=== PATIENT | male | born 1990 | race Caucasian/White ===

== ENCOUNTER 2019-06-04 10:45 | Emergency (ER) | payer OTHER, SELFPAY ==
[2019-06-04 10:54] VITALS: BP 127/66; PULSE 116; RESP 16; TEMP 38.8; O2SAT 97
--- NOTE | 2019-06-04 11:41 | ED.URI ---
HPI - URI/Sore Throat General Chief Complaint: Upper Respiratory Infection Stated Complaint: Bodly Aches,Fever Time Seen by Provider: 06/04/19 11:41 Source: patient and family Mode of arrival: ambulatory Limitations: no limitations History of Present Illness HPI Narrative: Erick Miranda is a 29 yo male with no PMH who comes to urgent care with fever, muscle aches, fatigue, and cough, rhinorrha- started and Thursday. Did not get flu vaccine Related Data Allergies Allergy/AdvReac Type Severity Reaction Status Date / Time shellfish derived Allergy Unknown Swelling Verified 03/24/19 18:25 of Lip/Tongue/Throat Shrimp Allergy Intermediate Swelling Uncoded 03/24/19 18:25 of Lip/Tongue/Throat Review of Systems Review of Systems: Narrative: cONSTITUTIONAL: has fever, chills, sweats. EYES: Denies visual changes, redness, discharge. ENT: Denies rhinorrhea, congestion, sore throat, otalgia. CARDIOVASCULAR: Denies chest pain, palpitations, edema. RESPIRATORY: Denies dyspnea, wheezing, has cough GASTROINTESTINAL: Denies abdominal pain, nausea, vomiting, diarrhea. GENITOURINARY: Denies dysuria, hematuria, abnormal discharge SKIN: Denies rash or itching. MUSCULOSKELETAL: Denies acute back pain, joint pain, or has myalgia. NEUROLOGIC: Denies numbness, or focal weakness. PSYCHIATRIC: Denies anxiety or depression. [facility] Past Medical History Medical History Dislocation of left shoulder joint Knee fracture, right Right knee dislocation Surgical History Surgical History No history of previous surgery Family History Family History Mother Family history of thyroid disease Grandparent Family history of type 2 diabetes mellitus Social History Social History Additional smoking assessment comments: Hx of smoking for 14 years, now only vapes occasionally with 3 mg Nicotine Alcohol intake: never Substance use: never Gender identity (if verbalized by the patient): Male Comments At time of signature, I agree with nursing past medical, surgical, social and family history. There is no relevant family history pertinent to the presenting complaint. Exam Narrative: Exam Narrative: GENERAL: This is a well-nourished, well-developed patient, in moderate distress with fever HEAD: normocephalic, atraumatic. EYES: PERRL. Sclera clear/white. Vision is grossly intact. EARS: External ears normal, auditory canals clear and without drainage, TMs normal without perforation. Hearing grossly intact. NOSE: External nose normal with no obvious nasal discharge, nares without redness, no rhinorrhea. THROAT: Mucous membranes moist, posterior pharynx erythema NECK: Neck supple, non-tender CARDIOVASCULAR: Tachycardic rate and rhythm without murmurs, gallops, or rubs. RESPIRATORY: Clear to auscultation. Breath sounds equal bilaterally. No wheezes, rales, or rhonchi. GASTROINTESTINAL: Abdomen soft, non-tender, SKIN: warm, intact with no suspicious lesions or rash, good texture and turgor. NEURO: awake, alert, and oriented to person, place and time. There were no obvious focal neurologic abnormalities. Steady gait EXTREMITIES: Normal range of motion. No edema. BACK: Nontender without deformity or crepitance. . Course Course Emergency Course: Influenza B positive-temiflu for both pt and spouse Vital Signs Vital signs: Vital Signs Temperature 101.8 F H 06/04/19 10:54 Pulse Rate 116 H 06/04/19 10:54 Respiratory Rate 16 06/04/19 10:54 Blood Pressure 127/66 06/04/19 10:54 Pulse Oximetry 97 06/04/19 10:54 Temperature 101.8 F H 06/04/19 10:54 Pulse Rate 116 H 06/04/19 10:54 Respiratory Rate 16 06/04/19 10:54 Blood Pressure 127/66 06/04/19 10:54 Pulse Oximetry 97 06/04/19 10:54
== END 2019-06-04 12:03 | disposition home or self-care (01) ==
PROVIDERS: Emergency Provider Nurse Practitioner
DX: J10.1 Influenza due to other identified influenza virus with other respiratory manifestations (principal); F17.200 Nicotine dependence, unspecified, uncomplicated
CPT/HCPCS: 87804; 99213; G0463

== ENCOUNTER 2020-12-26 10:57 | Emergency (ER) | payer OTHER, SELFPAY ==
[2020-12-26 11:05] VITALS: BP 138/98; PULSE 107; RESP 16; TEMP 36.9; O2SAT 98
[2020-12-26 11:27] VITALS: BP 138/98; PULSE 96; RESP 18; TEMP 36.8; O2SAT 99
--- NOTE | 2020-12-26 11:48 | ED.URI ---
HPI - URI/Sore Throat General Chief Complaint: Upper Respiratory Infection Stated Complaint: Sorethroat Time Seen by Provider: 12/26/20 11:27 Source: patient Mode of arrival: ambulatory Limitations: no limitations History of Present Illness HPI Narrative: Patient is a 30-year-old male complaining of sore throat, pus pockets in the back of his throat, body aches and chills x2 days. Patient denies any chest pain, shortness of breath, abdominal pain, nausea, vomiting, diarrhea, or rash. Related Data Allergies Allergy/AdvReac Type Severity Reaction Status Date / Time shellfish derived Allergy Unknown Swelling Verified 12/26/20 11:35 of Lip/Tongue/Throat Shrimp Allergy Intermediate Swelling Uncoded 12/26/20 11:35 of Lip/Tongue/Throat Review of Systems Review of Systems: All systems reviewed & are unremarkable except as noted in HPI and below Constitutional: Constitutional: Denies excessive sweating, Denies fever(s), Denies headache(s), Denies lethargy, Denies malaise, Denies weakness and Denies weight loss Eyes: Eyes: Denies blurry vision, Denies change in vision and Denies loss of vision ENT: Denies dizziness, Denies ear discharge, Denies headache(s), Denies lip swelling, Denies epistaxis, Denies nasal congestion, Denies neck pain and Denies tongue swelling Cardiovascular: Cardiovascular: Denies chest pain, Denies chest pain at rest, Denies chest pain with activity, Denies diaphoresis, Denies rapid heart rate, Denies edema, Denies irregular heart rhythm, Denies lightheadedness, Denies palpitations, Denies dyspnea and Denies dyspnea on exertion Respiratory: Respiratory: Denies chest congestion, Denies cough, Denies hemoptysis, Denies dyspnea and Denies dyspnea on exertion Gastrointestinal: Gastrointestinal: Denies abdominal pain, Denies melena, Denies hematochezia, Denies diarrhea, Denies nausea, Denies vomiting and Denies hematemesis Musculoskeletal: Musculoskeletal: Denies abnormal gait, Denies deformity, Denies joint swelling, Denies limited range of motion, Denies neck pain and Denies numbness Neurologic: Denies Abnormal speech present, Denies abnormal gait, Denies confusion, Denies dizziness, Denies headache(s), Denies focal weakness, Denies loss of vision, Denies numbness, Denies Other visual disturbances, Denies Sensory deficit (Neuro) and Denies weakness Psychiatric: Psychiatric: Denies confusion, Denies depression, Denies auditory hallucinations, Denies homicidal ideation and Denies suicidal ideation Endocrine: Endocrine: Denies cold intolerance, Denies excessive sweating, Denies fatigue, Denies heat intolerance and Denies palpitations Hematologic/Lymphatic: Hematologic/Lymphatic: Denies easy bleeding and Denies easy bruising Allergic/Immunologic: Allergic/Immunologic: Denies lip swelling, Denies throat swelling and Denies tongue swelling PMFSH Past Medical History Medical History (Updated 12/26/20 @ 13:07 by René Dow MD) Dislocation of left shoulder joint Knee fracture, right Right knee dislocation Surgical History Surgical History No history of previous surgery Family History Family History Mother Family history of thyroid disease Grandparent Family history of type 2 diabetes mellitus Social History Social History Additional smoking assessment comments: Hx of smoking for 14 years, now only vapes occasionally with 3 mg Nicotine Alcohol intake: never Substance use: never Gender identity (if verbalized by the patient): Male Exam Const: General: no acute distress and alert Orientation/consciousness: patient oriented x3 HENMT: Ears: external ears normal General nose exam: no nasal discharge noted Face and sinus: normal facial exam Mouth: Yes lip normal Other: Erythematous, swollen, with exudates of the
[2020-12-26] MEDS: PENICILLIN G BENZATHINE 1,200,000 UNITS/2 ML SYRINGE 1200000 UNITS IM (13:36)
== END 2020-12-26 13:46 | disposition home or self-care (01) ==
PROVIDERS: Emergency Provider Emergency Medicine
DX: J02.0 Streptococcal pharyngitis (principal)
CPT/HCPCS: 87880; 96372; 99284; J0561; J1100

== ENCOUNTER 2021-02-13 05:27 | Emergency (ER) | payer OTHER, SELFPAY ==
[2021-02-13 05:32] VITALS: BP 155/93; PULSE 103; RESP 14; TEMP 36.7; O2SAT 100
--- NOTE | 2021-02-13 06:43 | ED.EAR ---
HPI - Ear Problem General Chief complaint: Ear Stated complaint: ear ache Time Seen by Provider: 02/13/21 05:40 Source: patient Mode of arrival: ambulatory Limitations: no limitations History of Present Illness HPI Narrative: Patient is a 30-year-old male complaining of left ear pain that started yesterday. Patient denies any injury to the area. Patient denies any discharge. Patient denies any facial swelling. Patient denies any fever or chills. Related Data Allergies Allergy/AdvReac Type Severity Reaction Status Date / Time shellfish derived Allergy Unknown Swelling Verified 02/13/21 06:30 of Lip/Tongue/Throat Shrimp Allergy Intermediate Swelling Uncoded 02/13/21 06:30 of Lip/Tongue/Throat Review of Systems Review of Systems: All systems reviewed & are unremarkable except as noted in HPI and below Constitutional: Constitutional: Reports as per HPI PMFSH Past Medical History Medical History (Updated 02/13/21 @ 06:46 by René Dow MD) Dislocation of left shoulder joint Knee fracture, right Right knee dislocation Surgical History Surgical History No history of previous surgery Family History Family History Mother Family history of thyroid disease Grandparent Family history of type 2 diabetes mellitus Social History Social History Additional smoking assessment comments: Hx of smoking for 14 years, now only vapes occasionally with 3 mg Nicotine Alcohol intake: never Substance use: never Gender identity (if verbalized by the patient): Male Exam Const: General: healthy appearing, no acute distress and alert Orientation/consciousness: patient oriented x3 HENMT: Head: normal to inspection Ears: TM's normal bilaterally General nose exam: Normal external nose present Mouth: Yes moist mucous membranes Other: Negative for any ear discharge. Erythematous slightly swollen left external ear canal, tympanic membrane intact Eyes: Conjunctivae: conjunctivae normal Neck: Neck: normal visual inspection Resp: Effort & Inspection: normal respiratory effort Skin: General skin exam: normal color Rashes: no rashes Course Vital Signs Vital signs: Vital Signs Temperature 36.7 C 02/13/21 05:32 Pulse Rate 103 H 02/13/21 05:32 Respiratory Rate 14 02/13/21 05:32 Blood Pressure 155/93 H 02/13/21 05:32 Pulse Oximetry 100 02/13/21 05:32 Temperature 36.7 C 02/13/21 05:32 Pulse Rate 103 H 02/13/21 05:32 Respiratory Rate 14 02/13/21 05:32 Blood Pressure 155/93 H 02/13/21 05:32 Pulse Oximetry 100 02/13/21 05:32 Medical Decision Making Vital Signs Vital Signs: Vital Signs Temperature 36.7 C 02/13/21 05:32 Pulse Rate 103 H 02/13/21 05:32 Respiratory Rate 14 02/13/21 05:32 Blood Pressure 155/93 H 02/13/21 05:32 Pulse Oximetry 100 02/13/21 05:32 Temperature 36.7 C 02/13/21 05:32 Pulse Rate 103 H 02/13/21 05:32 Respiratory Rate 14 02/13/21 05:32 Blood Pressure 155/93 H 02/13/21 05:32 Pulse Oximetry 100 02/13/21 05:32 Discharge Plan Discharge Clinical Impression: Otitis externa Qualifiers: Otitis externa type: other infective Chronicity: acute Laterality: left Qualified Code(s): H60.392 - Other infective otitis externa, left ear Patient Disposition: Home, Self-Care Condition: Stable Instructions: Antibiotic Form, Swimmer's Ear (ED) Prescriptions: New Cipro HC 0.2-1 % drops,suspension 4 drp LEFT EAR Q12H 5 Days RF: 0 No Action oseltamivir 75 mg capsule 75 mg PO Q12H 5 Days Qty: 10 RF: 0 ibuprofen 600 mg tablet 600 mg PO TID PRN (Reason: fever or pain) Qty: 20 RF: 0 methylprednisolone [Medrol (Ezio)] 4 mg tablets,dose pack See Rx Instructions .ROUTE .COMPLEX Qty: 21 RF: 0 Follow-up/Referrals: [facility]
== END 2021-02-13 06:50 | disposition home or self-care (01) ==
PROVIDERS: Emergency Provider Emergency Medicine
DX: H60.392 Other infective otitis externa, left ear (principal)
CPT/HCPCS: 99283

== ENCOUNTER 2021-08-31 16:39 | Emergency (ER) | payer OTHER, SELFPAY ==
[2021-08-31 16:55] VITALS: BP 124/75; PULSE 105; RESP 16; TEMP 37.4; O2SAT 98
--- NOTE | 2021-08-31 17:48 | ED.URI ---
HPI - URI/Sore Throat General Chief Complaint: Upper Respiratory Infection Stated Complaint: URI Time Seen by Provider: 08/31/21 17:00 Source: patient Mode of arrival: ambulatory Limitations: no limitations History of Present Illness HPI Narrative: Mr. Wright is a 31-year-old male patient presenting to the clinic today with complaints of fever, cough, nasal congestion, and sore throat x3 days. He reports that his whole family has also been ill. He denies any known exposure to anybody with COVID, flu, or strep. MD elicited complaint: fever, cough, sore throat, rhinorrhea and nasal congestion Related Data Allergies Allergy/AdvReac Type Severity Reaction Status Date / Time shellfish derived Allergy Unknown Swelling Verified 02/13/21 06:30 of Lip/Tongue/Throat Shrimp Allergy Intermediate Swelling Uncoded 02/13/21 06:30 of Lip/Tongue/Throat Review of Systems Review of Systems: Pertinent positives per HPI. Patient denies any fever, chills, rash, headache, visual changes, dizziness, cough, shortness of breath, chest pain, palpitations, nausea, vomiting, diarrhea, constipation, abdominal pain, or any urinary issues. [facility] Past Medical History Medical History Dislocation of left shoulder joint Knee fracture, right Right knee dislocation Surgical History Surgical History No history of previous surgery Family History Family History Mother Family history of thyroid disease Grandparent Family history of type 2 diabetes mellitus Social History Social History Additional smoking assessment comments: Hx of smoking for 14 years, now only vapes occasionally with 3 mg Nicotine Alcohol intake: never Substance use: never Gender identity (if verbalized by the patient): Male Comments At the time of my signature, I reviewed and agree with the nursing past medical, surgical, social, and family history. There is no relevant family history pertinent to the patient complaint. Exam Narrative: General: Well-developed, overweight, in no apparent distress Head: Normocephalic, atraumatic Eyes: Pupils equally round and reactive to light bilaterally, EOM intact, sclera and conjunctive clear, no discharge, lids normal Ears: TMs intact and dull, ear canals ceruminous, no drainage, grossly hearing normal. Nose: Nares patent, clear nasal discharge, mild inflammation, no sinus tenderness. Mouth: Oral pharynx without lesions or masses, good dentition, MMM. oropharynx red with left tonsillar swelling without exudate Neck: Supple, trachea midline, no enlargement of anterior or posterior cervical nodes, no thyroid masses or goiter palpable. Cardio: Regular rate and rhythm, s1 and s2 normal, no murmur appreciated. Resp: Clear to auscultation bilaterally, no rhonchi, rales, wheezing or rubs Course Course Emergency Course: Portions of this record may have been created with voice recognition software. Level of Care: Express Care Visit Vital Signs Vital signs: Vital Signs Temperature 37.4 C 08/31/21 16:55 Pulse Rate 105 H 08/31/21 16:55 Respiratory Rate 16 08/31/21 16:55 Blood Pressure 124/75 08/31/21 16:55 Pulse Oximetry 98 08/31/21 16:55 Temperature 37.4 C 08/31/21 16:55 Pulse Rate 105 H 08/31/21 16:55 Respiratory Rate 16 08/31/21 16:55 Blood Pressure 124/75 08/31/21 16:55 Pulse Oximetry 98 08/31/21 16:55 Vital signs reviewed MDM - URI/Sore Throat MDM Narrative Medical decision making narrative: At the time of visit patient is resting comfortably on the exam table. He is complaining of nasal congestion, sore throat, fever, and chills. Influenza, strep, and COVID testing completed and patient was negative for COVID and strep and was p
== END 2021-08-31 18:04 | disposition home or self-care (01) ==
PROVIDERS: Emergency Provider Nurse Practitioner Family
DX: J10.1 Influenza due to other identified influenza virus with other respiratory manifestations (principal); Z20.822 Contact with and (suspected) exposure to COVID-19
CPT/HCPCS: 87081; 87426; 87804; 87880; 99213; C9803; G0463

== ENCOUNTER 2021-10-12 03:01 | Emergency (ER) | payer OTHER, SELFPAY ==
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
[2021-10-12 03:09] VITALS: BP 151/93; PULSE 86; RESP 18; O2SAT 98
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
[2021-10-12 03:18] VITALS: BP 151/93; PULSE 90; RESP 18; O2SAT 96
== END 2021-10-12 04:49 | disposition home or self-care (01) ==
PROVIDERS: Emergency Provider Emergency Medicine
DX: S83.92XA Sprain of unspecified site of left knee, initial encounter (principal); V86.59XA Driver of other special all-terrain or other off-road motor vehicle injured in nontraffic accident, initial encounter
CPT/HCPCS: 73562; 99283

== ENCOUNTER 2022-03-22 16:50 | Emergency (ER) | payer OTHER, SELFPAY ==
--- NOTE | 2022-03-22 16:50 | ED.URI ---
HPI - URI/Sore Throat General Chief Complaint: Upper Respiratory Infection Stated Complaint: pt wants strep test Time Seen by Provider: 03/22/22 16:50 Source: patient Mode of arrival: ambulatory Limitations: no limitations History of Present Illness HPI Narrative: Mr. Miranda is a 32-year-old male patient presenting to clinic today with complaints of sore throat, body aches, fever, chills, and headache x1 day. He reports that his significant other was seen earlier today and tested positive for strep. He would like strep test done today MD elicited complaint: sore throat and nasal congestion Related Data Allergies Allergy/AdvReac Type Severity Reaction Status Date / Time shellfish derived Allergy Unknown Swelling Verified 10/12/21 03:19 of Lip/Tongue/Throat Shrimp Allergy Intermediate Swelling Uncoded 10/12/21 03:19 of Lip/Tongue/Throat Review of Systems Review of Systems: Pertinent positives per HPI. Patient denies any rash, headache, visual changes, dizziness, shortness of breath, chest pain, palpitations, nausea, vomiting, diarrhea, constipation, abdominal pain, or any urinary issues. PMFSH Past Medical History Medical History Dislocation of left shoulder joint Knee fracture, right Right knee dislocation Surgical History Surgical History No history of previous surgery Family History Family History Mother Family history of thyroid disease Grandparent Family history of type 2 diabetes mellitus Social History Social History Additional smoking assessment comments: Hx of smoking for 14 years, now only vapes occasionally with 3 mg Nicotine Alcohol intake: never Substance use: never Gender identity (if verbalized by the patient): Male Comments At the time of my signature, I reviewed and agree with the nursing past medical, surgical, social, and family history. There is no relevant family history pertinent to the patient complaint. Exam Narrative: General: Well-developed, well nourished, in no apparent distress Head: Normocephalic, atraumatic Eyes: Pupils equally round and reactive to light bilaterally, EOM intact, sclera and conjunctive clear, no discharge, lids normal Ears: TMs intact and clear, ear canals clear, no drainage, grossly hearing normal. Nose: Nares patent, clear nasal discharge, no inflammation, no sinus tenderness. Mouth: Oral pharynx without lesions or masses, good dentition, MMM. Oropharynx red with tonsillar enlargement and exudate Neck: Supple, trachea midline,enlargement of anterior cervical nodes, no thyroid masses or goiter palpable. Cardio: Regular rate and rhythm, s1 and s2 normal, no murmur appreciated. Resp: Clear to auscultation bilaterally, no rhonchi, rales, wheezing or rubs Course Course Emergency Course: Portions of this record may have been created with voice recognition software. Level of Care: Express Care Visit Vital Signs Vital signs: Vital Signs Temperature 37.7 C H 03/22/22 16:57 Pulse Rate 115 H 03/22/22 16:57 Respiratory Rate 16 03/22/22 16:57 Blood Pressure 152/84 H 03/22/22 16:57 Pulse Oximetry 99 03/22/22 16:57 Temperature 37.7 C H 03/22/22 16:57 Pulse Rate 115 H 03/22/22 16:57 Respiratory Rate 16 03/22/22 16:57 Blood Pressure 152/84 H 03/22/22 16:57 Pulse Oximetry 99 03/22/22 16:57 Vital signs reviewed MDM - URI/Sore Throat MDM Narrative Medical decision making narrative: At the time of visit patient is resting comfortably on the exam table. Strep screen was obtained and was positive for strep pharyngitis. Prescription for amoxicillin was sent to pharmacy. Supportive measures were discussed with the patient he voiced understanding of discharge
[2022-03-22 16:57] VITALS: BP 152/84; PULSE 115; RESP 16; TEMP 37.7; O2SAT 99
== END 2022-03-22 17:11 | disposition home or self-care (01) ==
PROVIDERS: Emergency Provider Nurse Practitioner Family
DX: J02.0 Streptococcal pharyngitis (principal); F17.209 Nicotine dependence, unspecified, with unspecified nicotine-induced disorders
CPT/HCPCS: 87880; 99213; G0463